=== PATIENT | female | born 1990 | race Caucasian/White ===

== ENCOUNTER 2016-03-08 22:13 | Emergency (ER) | payer OTHER, MEDICAID ==
[2016-03-09 00:06] LABS: Urine Bacteria Absent (Absent); Urine Bilirubin Negative (Negative); Urine Glucose Negative (Negative); Urine Nitrite Negative (Negative)
[2016-03-09 01:04] VITALS: BP 111/66
--- NOTE | 2016-03-09 07:38 | RAD ---
INDICATION: Right flank pain. COMPARISON: Comparison is made with a prior CT of the abdomen and pelvis from April 04, 2012. TECHNIQUE: Multiple real-time images of the right kidney were obtained. FINDINGS: The right kidney is normal in size shape and echogenicity. The kidney measured 11.7 x 4.9 x 5.4 cm. No significant focal abnormality or hydronephrosis was present. IMPRESSION: NEGATIVE EXAM, NO EVIDENCE FOR HYDRONEPHROSIS.
--- NOTE | 2016-03-09 07:44 | RAD ---
INDICATION: Early . Right-sided pain COMPARISON: None TECHNIQUE: Transvaginal scans were performed for the purposes of early evaluation. FINDINGS: There is a single intrauterine gestation with identification of the pole, yolk sac, movement, and cardiac activity of 150 beats for minute. The crown-rump length corresponds to a 12 week 6 day gestation and the gestational sac size measurement to a 12 week 6 day gestation. The estimated due date is September 15, 2016. There is no subchorionic hemorrhage. The right ovary measures 2.6 x 2.6 x 3.0 cm and the left ovary 3.7 x 1.4 x 4.1 cm. There is a left paraovarian cyst. IMPRESSION: INTRAUTERINE GESTATION AT 12 WEEKS 6 DAYS WITH CONFIRMATION OF CARDIAC ACTIVITY
--- NOTE | 2016-03-09 11:38 | ED ---
Naif Rodriges Billy, scribed for Daniel Henry MD on 03/08/16 at 2252 . Back Pain - HPI Summary HPI Summary: Patient is a 25 year-old female coming to [facility] presenting with right lower back pain for the last few days. She describes a constant ache with intermittent sharp pain lasting 1 to 2 minutes. Pain severity 3/10. Nothing makes her pain better or worse. She denies any urinary changes or symptoms. She is [address] Angella Latham ([facility] [facility]) in [place]. She denies any similar symptoms during her last . LMP at the end of November. - History of Current Complaint Chief Complaint: EDGeneral Stated Complaint: 3 MONTHS PREG/ PAIN IN SIDE Time Seen by Provider: 03/08/16 22:43 Hx Obtained From: Patient Hx Last Menstrual Period: 10/26/15 Onset/Duration: Gradual Onset, Lasting Days, Still Present Onset/Duration: Started Days Ago Timing: Constant - ache, Intermittent - sharp pain, Lasting Minutes Back Pain Location: Is Discrete @ - right lower back Severity Initially: Moderate Severity Currently: Moderate Pain Intensity: 3 Pain Scale Used: 0-10 Numeric Character: Sharp - intermittent, Aching - constant Aggravating Symptom(s): Nothing Alleviating Symptom(s): Nothing Associated Signs And Symptoms: Positive: Negative - Allergies/Home Medications Allergies/Adverse Reactions: Allergies Allergy/AdvReac Type Severity Reaction Status Date / Time No Known Allergies Allergy Verified 12/24/15 18:09 PMH/Surg Hx/FS Hx/Imm Hx Endocrine/Hematology History: Denies: Hx Anticoagulant Therapy, Hx Diabetes, Hx Thyroid Disease Cardiovascular History: Denies: Hx Hypertension, Hx Pacemaker/ICD Respiratory History: Reports: Hx Asthma Denies: Hx Chronic Obstructive Pulmonary Disease (COPD) History: Reports: Other Problems/Disorders - ovarian cysts Denies: Hx Renal Disease Sensory History: Reports: Hx Cataracts Opthamlomology History: Reports: Hx Cataracts Neurological History: Denies: Hx Dementia, Hx Seizures Psychiatric History: Denies: Hx Substance Abuse - Surgical History Surgery Procedure, Year, and Place: denies - Immunization History Date of Tetanus Vaccine: up to date per pt Infectious Disease History: Yes Infectious Disease History: Reports: Hx of Known/Suspected MRSA Denies: Hx Hepatitis, Hx Human Immunodeficiency Virus (HIV), History Other Infectious Disease, Traveled Outside the [place] in Last 30 Days - Family History Known Family History: Positive: Cardiac Disease, Other - lupus - Social History Alcohol Use: Occasionally Substance Use Type: Reports: None Smoking Status (MU): Former Smoker Amount Used/How Often: 1 cig a day Review of Systems Negative: dysuria Positive: Other - lower back pain All Other Systems Reviewed And Are Negative: Yes Physical Exam Triage Information Reviewed: Yes Vital Signs On Initial Exam: Initial Vitals Temp Pulse Resp BP Pulse Ox 99 F 89 18 122/72 100 03/08/16 22:16 03/08/16 22:16 03/08/16 22:16 03/08/16 22:16 03/08/16 22:16 Vital Signs Reviewed: Yes Appearance: Positive: Well-Appearing, No Pain Distress Skin: Positive: Warm, Skin Color Reflects Adequate Perfusion Head/Face: Positive: Normal Head/Face Inspection Eyes: Positive: Normal ENT: Positive: Normal ENT inspection Neck: Positive: Supple, Nontender Respiratory/Lung Sounds: Positive: Clear to Auscultation, Breath Sounds Present Cardiovascular: Positive: RRR Abdomen Description: Positive: Nontender, Soft Musculoskeletal: Positive: Pain @ - Mild right paralumbar tenderness. Her sharp pain is not reproducible with palpation. Neurological: Positive: Normal Psychiatric: Positive: Normal, Affect/Mood Appropriate AVPU Assessment: Alert Diagnostics - Vital Signs Vital Signs Temp Pulse Resp BP Pulse Ox 03/08/16 22:16 99 F 89 18 122/72 100 - Laboratory Lab Results: Lab Results 03/08/16 Range/Units 23:30 Urine Color Yellow Urine Appearance Cloudy Urine pH 5.0 (5-9) Ur Specific [place] 1.026 (1.010-1.030) Urine Protein Negative (Negative) Urine Ketones Trace H (Negative) Urine Blood Negative (Negative) Urine Nitrate Negative (Negative) Urine Bilirubin Negative (Negative) Urine Urobilinogen Negative (Negative) Ur Leukocyte Esterase Trace H (Negative) Urine WBC (Auto) Trace(0-5/hpf) (Absent) Urine RBC (Auto) 2+(6-10/hpf) H (Absent) Ur Squamous Epith Cells Present H (Absent) Urine Bacteria Absent (Absent) Urine Glucose Negative (Negative) Urine Ascorbic Acid * H (Negative) Lab Statement: Any lab studies that have been ordered have been reviewed, and results considered in the medical decision making process. - Additional Comments Diagnostic Additional Comments: Renal right US: Normal appearance of the right kidney. US: Live intrauterine gestation of approximately 12 weeks 6 days by mean sac diameter measurements. Paraovarian cyst on the left. Otherwise normal appearance of both ovaries. Back Pain Course/Dx - Course Course Of Treatment: Patricia Gilbert presented with a dull pain in edi back on the right that was very mild but occasionallybecame sharp and severe for a brief second or two. She could describe no exacerabating or relieving factors but i could reproduce the dull part by palpation but not the sharp. Her U/S's showed a viable fetus and not hydronephrosis or obvious stone. there was 2+ blood in her U/A but also squamus cells. The urine was sent for C&S and i recommended close F/u with OB. She may need a CT to R/O stone. - Diagnoses Provider Diagnoses: Back pain Discharge - Discharge Plan Condition: Stable Disposition: HOME Patient Education Materials: Back Pain (ED) Additional Instructions: FOLLOW UP WITH DR. LATHAM ([employer] [employer]). The documentation as recorded by the Naif patel Billy accurately reflects the service I personally performed and the decisions made by me, Daniel Henry MD.
== END 2016-03-09 01:04 | disposition home or self-care (01) ==
LOC: ED 22:13
DX: O26.91 Pregnancy related conditions, unspecified, first trimester (principal); Z3A.12 12 weeks gestation of pregnancy; M54.5 Low back pain; Z87.891 Personal history of nicotine dependence; R31.9 Hematuria, unspecified
CPT/HCPCS: 76775; 76801; 81003; 81015; 87086; 99282

== ENCOUNTER 2016-06-03 01:20 | Emergency (ER) | payer OTHER, MEDICAID ==
[2016-06-03 03:16] LABS: Urine Bilirubin Negative (Negative); Urine Glucose Negative (Negative); Urine Nitrite Negative (Negative)
--- NOTE | 2016-06-03 03:23 | ED ---
Psychiatric Complaint - HPI Summary HPI Summary: Pt here w/ anxiety. H/o anxiety and was taking zoloft and xanax for this over 18 months ago. She stopped taking these medication during her first and has not been back on them since. Feels she's been doing well without them. She is currently 7 months w/o complications. Has had a few [place] contractions but was seen by OBGYN this morning and everything was fine - no new sx since and denies vaginal d/c, spotting, ab pain. Has had some nausea from anxiety. Also reports she's not been sleeping well -mind is racing. She lives w/ her fiance who she reports is a very good father and she feels she's supportive. She's also in school and works one day a week at [employer]. No event has triggered anxiety to be worse, but states some of her friends have been saying they're "waiting for her to crack" - she states " I guess I finally did". Feels overwhelmed and doesn't want to feel this way -wants to be fully present for her daughter. Denies SI/HI and reports she just [facility] to make sure she was medically okay. Has not been in counseling in years but is open to this. - History Of Current Complaint Chief Complaint: EDMentalHealth Time Seen by Provider: 06/03/16 02:15 Hx Obtained From: Patient Hx Last Menstrual Period: 10/26/15 - Allergies/Home Medications Allergies/Adverse Reactions: Allergies Allergy/AdvReac Type Severity Reaction Status Date / Time No Known Allergies Allergy Verified 12/24/15 18:09 PMH/Surg Hx/FS Hx/Imm Hx Previously Healthy: Yes Endocrine/Hematology History: Denies: Hx Anticoagulant Therapy, Hx Diabetes, Hx Thyroid Disease, Hx Anemia , Autoimmune Disease Cardiovascular History: Denies: Hx Hypertension, Hx Pacemaker/ICD Respiratory History: Reports: Hx Asthma Denies: Hx Chronic Obstructive Pulmonary Disease (COPD) History: Reports: Other Problems/Disorders - ovarian cysts Denies: Hx Renal Disease Sensory History: Reports: Hx Cataracts Opthamlomology History: Reports: Hx Cataracts Neurological History: Denies: Hx Dementia, Hx Seizures Psychiatric History: Denies: Hx Substance Abuse - Surgical History Surgery Procedure, Year, and Place: denies - Immunization History Date of Tetanus Vaccine: up to date per pt Infectious Disease History: No Infectious Disease History: Reports: Hx of Known/Suspected MRSA Denies: Hx Hepatitis, Hx Human Immunodeficiency Virus (HIV), History Other Infectious Disease, Traveled Outside the [place] in Last 30 Days - Family History Known Family History: Positive: Cardiac Disease, Other - lupus - Social History Occupation: Employed Part-time, Student Lives: With Family Alcohol Use: None Hx Substance Use: No Substance Use Type: Reports: None. Denies: Excessive Caffeine Smoking Status (MU): Former Smoker Amount Used/How Often: 1 cig a day Review of Systems Negative: Fever, Chills ENT: Negative Cardiovascular: Other - CHEST DISCOMFORT W/ ANXIETY Negative: Shortness Of Breath, Cough Positive: Nausea - see HPI. Negative: Abdominal Pain, Diarrhea Positive: no symptoms reported Musculoskeletal: Negative Skin: Negative Neurological: Negative Positive: Anxious - See HPI- denies SI/HI All Other Systems Reviewed And Are Negative: Yes Physical Exam Triage Information Reviewed: Yes Vital Signs On Initial Exam: Initial Vitals Temp Pulse Resp BP Pulse Ox 98.7 F 101 18 140/91 100 06/03/16 01:29 06/03/16 01:29 06/03/16 01:29 06/03/16 01:29 06/03/16 01:29 Vital Signs Reviewed: Yes Appearance: Positive: No Pain Distress, Well-Nourished - tearful Skin: Positive: Warm, Dry Head/Face: Positive: Normal Head/Face Inspection Eyes: Positive: Normal, EOMI ENT: Positive: Hearing grossly normal, Pharynx normal - mucosa moist Neck: Positive: Supple - no gross thyromegaly Respiratory/Lung Sounds: Positive: Clear to Auscultation, Breath Sounds Present. Negative: Rales, Rhonchi, Wheezes Cardiovascular: Positive: Normal, RRR Abdomen Description: Positive: Nontender, Soft, Other: - ab Bowel Sounds: Positive: Present Musculoskeletal: Positive: Normal, Strength/ROM Intact Neurological: Positive: Normal, Sensory/Motor Intact, Alert, Oriented to Person Place, Time, CN Intact II-III Psychiatric: Positive: Anxious - tearful but calms down after conversation Diagnostics - Vital Signs Vital Signs Temp Pulse Resp BP Pulse Ox 06/03/16 01:32 97.1 F 101 18 140/91 100 06/03/16 01:29 98.7 F 101 18 140/91 100 - Laboratory Lab Results: Lab Results 06/03/16 Range/Units 03:02 Urine Color Yellow Urine Appearance Clear Urine pH 5.0 (5-9) Ur Specific [place] 1.018 (1.010-1.030) Urine Protein Negative (Negative) Urine Ketones Negative (Negative) Urine Blood Negative (Negative) Urine Nitrate Negative (Negative) Urine Bilirubin Negative (Negative) Urine Urobilinogen Negative (Negative) Ur Leukocyte Esterase Negative (Negative) Urine Glucose Negative (Negative) Lab Statement: Any lab studies that have been ordered have been reviewed, and results considered in the medical decision making process. Course/Dx - Course Course Of Treatment: Pt presents w/ anxiety. W/ h/o anxiety and full schedule in the face of poor sleep recently, suspect this is a relapse of anxiety. Will r /o medical issues and encouraged counseling outpt. May call to schedule tomorrow. If medical causes are ruled out, pt does not want anything for anxiety tonight as she doesn't like to take medication during , not even tylenol. SIgned out to Dr. Mcdonald at 3:29am. - Differential Dx/Clinical Impression Provider Diagnosis: Anxiety, - Physician Notifications Discussed Care Of Patient With: Dr. Mcdonald Discharge - Discharge Plan Condition: Stable Disposition: OTHER Discharge Disposition Comment: Signed out to Dr. Mcdonald @ 3:29am
[2016-06-03 03:30] LABS: Hematocrit 38 % (35-47); Hemoglobin 12.2 g/dl (12.0-16.0); Mean Corpuscular HGB Conc 32 g/dl (31-36); Mean Corpuscular Hemoglobin 28 pg (27-31); Mean Corpuscular Volume 87 fL (80-97); Mean Platelet Volume 8 um3 (7.4-10.4); Red Blood Count 4.32 10^6/ul (4.0-5.4); Red Cell Distribution Width 14 % (10.5-15)
[2016-06-03 03:35] LABS: Benzodiazepine Urine Screen None Detected (None Detect)
[2016-06-03 03:48] LABS: Acetaminophen < 15 mcg/mL; Alcohol < 10 mg/dL (<10); Salicylate < 2.50 mg/dL (<30)
[2016-06-03 03:58] LABS: TSH (Thyroid Stimulating Horm) 1.37 mcIU/mL (0.34-5.60)
[2016-06-03 04:37] LABS: Anion Gap 8 mmol/L (2-11); CO2 Carbon Dioxide 21 mmol/L (22-32); Chloride 105 mmol/L (101-111); Potassium 3.7 mmol/L (3.5-5.0); Sodium 134 mmol/L (133-145)
[2016-06-03 04:38] LABS: ALT 10 U/L (7-52); AST 14 U/L (13-39); Albumin 3.4 g/dL (3.2-5.2); Alkaline Phosphatase 65 U/L (34-104); BUN/Creatinine Ratio 15.8 (8-20); Blood Urea Nitrogen 9 mg/dL (6-24); Calcium 8.7 mg/dL (8.6-10.3); EGFR African American 167.6 (>60); EGFR Non-African American 130.3 (>60); Globulin 2.8 g/dL (2-4); Glucose 92 mg/dL (70-100); Total Protein 6.2 g/dL (6.4-8.9)
[2016-06-03 05:45] VITALS: BP 104/57
--- NOTE | 2016-06-03 21:04 | PN ---
Naif Rodriges Billy, scribed for Justin Mcdonald MD on 06/03/16 at 0513 . Progress Note - Progress Note Note: Signed out by ELIZABETH Dang. Patient will be discharged home to follow up with PCP. DIAGNOSIS: Anxiety CONDITION: Stable DISPOSITION: Discharge home The documentation as recorded by the Naif patel Billy accurately reflects the service I personally performed and the decisions made by Tamara conner Jerry, MD.
== END 2016-06-03 05:44 | disposition home or self-care (01) ==
LOC: ED 01:20
DX: F41.9 Anxiety disorder, unspecified (principal); R11.0 Nausea; Z34.90 Encounter for supervision of normal pregnancy, unspecified, unspecified trimester
CPT/HCPCS: 36415; 80053; 80307; 80320; 80329; 81003; 84443; 84702; 85025; 99283; G0480

== ENCOUNTER 2017-09-20 20:48 | Emergency (ER) | payer MEDICAID, OTHER ==
--- NOTE | 2017-09-20 21:18 | ED ---
Lower Extremity - HPI Summary HPI Summary: Complains of pain to dorsal lateral edge of right foot 2 months. History of broken fifth toe on right foot 2 months ago. States pain started around that time. Pain disturbance patient at night when she rolls over or puts pressure on that side of her foot. States 60% of the time when she ambulates no pain, 40 % a time and rates with pain. Denies loss of sensation or function. Medical history is none. - History of Current Complaint Chief Complaint: EDExtremityLower Stated Complaint: RT FOOT INJURY Time Seen by Provider: 09/20/17 21:01 Hx Obtained From: Patient Hx Last Menstrual Period: 10/26/15 Mechanism Of Injury: Unknown Onset of Pain: Days Onset/Duration: Weeks Severity Initially: Mild Severity Currently: Moderate Pain Intensity: 5 Pain Scale Used: 0-10 Numeric Timing: Intermittent Location: Is Discrete @ Character Of Pain: Sharp, Aching Associated Signs And Symptoms: Positive: Negative Aggravating Factor(s): Weight Bearing, Other Able to Bear Weight: Yes - Allergies/Home Medications Allergies/Adverse Reactions: Allergies Allergy/AdvReac Type Severity Reaction Status Date / Time No Known Allergies Allergy Verified 09/20/17 20:53 PMH/Surg Hx/FS Hx/Imm Hx Endocrine/Hematology History: Denies: Hx Anticoagulant Therapy, Hx Diabetes, Hx Thyroid Disease, Hx Anemia Cardiovascular History: Denies: Hx Hypertension, Hx Pacemaker/ICD Respiratory History: Reports: Hx Asthma Denies: Hx Chronic Obstructive Pulmonary Disease (COPD) History: Reports: Other Problems/Disorders - ovarian cysts Denies: Hx Renal Disease Sensory History: Reports: Hx Cataracts Opthamlomology History: Reports: Hx Cataracts Neurological History: Denies: Hx Dementia, Hx Seizures Psychiatric History: Denies: Hx Substance Abuse - Surgical History Surgery Procedure, Year, and Place: denies - Immunization History Date of Tetanus Vaccine: up to date per pt Infectious Disease History: No Infectious Disease History: Reports: Hx of Known/Suspected MRSA Denies: Hx Hepatitis, Hx Human Immunodeficiency Virus (HIV), History Other Infectious Disease, Traveled Outside the [place] in Last 30 Days - Family History Known Family History: Positive: Cardiac Disease, Other - lupus - Social History Alcohol Use: None Hx Substance Use: No Substance Use Type: Reports: None. Denies: Excessive Caffeine Smoking Status (MU): Former Smoker Amount Used/How Often: 1 cig a day Review of Systems Constitutional: Negative Eyes: Negative ENT: Negative Cardiovascular: Negative Respiratory: Negative Gastrointestinal: Negative Genitourinary: Negative Musculoskeletal: Other Skin: Negative Neurological: Negative Psychological: Normal All Other Systems Reviewed And Are Negative: Yes Physical Exam - Summary Physical Exam Summary: No ecchymosis, erythema, extra warmth, deformity, swelling noted to right foot, right ankle, right calf.. PMS intact distally. Mild tenderness along lateral dorsal surface of right foot. No tenderness to right ankle, right calf. Triage Information Reviewed: Yes Vital Signs On Initial Exam: Initial Vitals Temp Pulse Resp BP Pulse Ox 97.5 F 56 16 122/88 99 09/20/17 20:49 09/20/17 20:49 09/20/17 20:49 09/20/17 20:49 09/20/17 20:49 Vital Signs Reviewed: Yes Appearance: Positive: Well-Appearing Skin: Positive: Warm Head/Face: Positive: Normal Head/Face Inspection Eyes: Positive: Normal Neck: Positive: Supple Respiratory/Lung Sounds: Positive: Clear to Auscultation Cardiovascular: Positive: Normal Abdomen Description: Positive: Nontender Musculoskeletal: Positive: Normal Neurological: Positive: Normal Psychiatric: Positive: Normal AVPU Assessment: Alert - [place] Coma Scale Best Eye Response: 4 - Spontaneous Best Motor Response: 6 - Obeys Commands Best Verbal Response: 5 - Oriented Coma Scale Total: 15 Diagnostics - Vital Signs Vital Signs Temp Pulse Resp BP Pulse Ox 09/20/17 20:49 97.5 F 56 16 122/88 99 - Laboratory Lab Statement: Any lab studies that have been ordered have been reviewed, and results considered in the medical decision making process. - Radiology foot Xray Interpretation: No Acute Changes Radiology Interpretation Completed By: ED Physician Lower Extremity Course/Dx - Course Course Of Treatment: Complains of pain to dorsal lateral edge of right foot 2 months. History of broken fifth toe on right foot 2 months ago. States pain started around that time. Pain disturbance patient at night when she rolls over or puts pressure on that side of her foot. States 60% of the time when she ambulates no pain, 40% a time and rates with pain. Denies loss of sensation or function. No ecchymosis, erythema, extra warmth, deformity, swelling noted to right foot, right ankle, right calf.. PMS intact distally. Mild tenderness along lateral dorsal surface of right foot. No tenderness to right ankle, right calf. X-ray foot negative. Follow-up with podiatry. Ibuprofen for pain - Diagnoses Provider Diagnoses: Foot pain, right Discharge - Sign-Out/Discharge Documenting (check all that apply): Patient Departure - Discharge Plan Condition: Stable Disposition: HOME Patient Education Materials: Metatarsalgia (DC) Referrals: Raul Rojo MD [Primary Care Provider] - ROSEMARY REYES [Doctor of Podiatric Medicine] - Additional Instructions: Ibuprofen for pain. Follow-up with podiatry Dr Reyes. Return to the ED for any new or worsening symptoms - Billing Disposition and Condition Condition: STABLE Disposition: Home
[2017-09-20] MEDS ORDERED: Ibuprofen TAB* 600 MG PO ONE (21:56)
[2017-09-20 22:28] VITALS: BP 118/80
--- NOTE | 2017-09-21 07:27 | RAD ---
Indication: Right lateral dorsal foot pain. 3 views of the right foot demonstrates no fracture. No other bone or joint abnormality is noted. IMPRESSION: No fracture of the right foot is noted.
== END 2017-09-20 22:05 | disposition home or self-care (01) ==
LOC: ED 20:48
DX: M79.671 Pain in right foot (principal); Z87.891 Personal history of nicotine dependence
CPT/HCPCS: 99282; A9270-GY

== ENCOUNTER 2018-01-25 12:43 | Emergency (ER) | payer MEDICAID, OTHER ==
--- NOTE | 2018-01-25 13:01 | UC ---
UC General HPI - HPI Summary HPI Summary: 27 yo female c/o approx 4 weeks progressive, productive cough. + dark yellow sputum, occasional blood. No sob but + wheezing. No recent fever. No GI issues. No issues. + fatigue. Hx asthma. Hx pneumonia. Wanted to come in to be checked earlier but did not have health insurance until recently. - History of Current Complaint Stated Complaint: COUGH,CHEST CONGESTION Time Seen by Provider: 01/25/18 12:59 Hx Obtained From: Patient Hx Last Menstrual Period: 10/26/15 - Allergy/Home Medications Allergies/Adverse Reactions: Allergies Allergy/AdvReac Type Severity Reaction Status Date / Time No Known Allergies Allergy Verified 01/25/18 13:10 Home Medications: Home Medications ALPRAZolam [Xanax] 0.25 mg PO SEE INSTRUCTIONS 01/25/18 [History Confirmed 01/25] PMH/Surg Hx/FS Hx/Imm Hx Previously Healthy: Yes Other History Of: Negative For: Anticoagulant Therapy - Surgical History Surgical History: None Surgery Procedure, Year, and Place: denies - Family History Known Family History: Positive: Cardiac Disease, Other - lupus Negative: Respiratory Disease - Social History Occupation: Employed Part-time Alcohol Use: None Substance Use Type: None Smoking Status (MU): Never Smoked Tobacco Amount Used/How Often: 1 cig a day Household Exposure Type: Cigarettes - Immunization History Most Recent Influenza Vaccination: 2011 Most Recent Tetanus Shot: UNKNOWN Most Recent Pneumonia Vaccination: NEVER Review of Systems All Other Systems Reviewed And Are Negative: Yes Constitutional: Positive: Fatigue Skin: Positive: Negative Eyes: Positive: Negative ENT: Positive: Nasal Discharge, Sinus Congestion Respiratory: Positive: Cough Cardiovascular: Positive: Other - see hpi Gastrointestinal: Positive: Negative Genitourinary: Positive: Negative Motor: Positive: Negative Neurovascular: Positive: Negative Musculoskeletal: Positive: Negative Neurological: Positive: Negative Psychological: Positive: Negative Is Patient Immunocompromised?: No Physical Exam Triage Information Reviewed: Yes Appearance: Well-Nourished - sitting up, conversing in full sentances. Vital Signs Reviewed: Yes Eye Exam: Normal ENT: Positive: TM dull, Other - Tonsils enlarged, red. + white spots on tonsils. Uvula midline. Trachea midline. Neck exam: Normal Neck: Positive: Supple, Nontender Respiratory Exam: Other - Bilat course breath sounds. + rhonchorus cough. + scattered exp wheeze Respiratory: Positive: No respiratory distress, No accessory muscle use Cardiovascular Exam: Normal Cardiovascular: Positive: RRR, No Murmur, Pulses Normal, Brisk Capillary Refill Abdominal Exam: Normal Abdomen Description: Positive: Nontender Musculoskeletal Exam: Normal - gait steady, moves x 4 ext's Neurological Exam: Normal - grossly nonfocal Psychological Exam: Normal - conversing easily and appropriately Skin Exam: Normal - no visible or reported rash Course/Dx - Course Course Of Treatment: RST negative. CXR - nad. Reviewed previous labs as available in [facility]. In light of this, in conjunction with current sx and fatigue, will check blood work. She will schedule f/u with PCP, Dr. Rojo. Questions as posed answered to the best of my ability. - Diagnoses Provider Diagnosis: Bronchitis, Bronchospasm, Tonsillitis Discharge - Sign-Out/Discharge Documenting (check all that apply): Patient Departure All imaging exams completed and their final reports reviewed: Yes - Discharge Plan Condition: Stable Disposition: HOME Patient Education Materials: Acute Bronchitis (ED), Bronchospasm (ED) Referrals: Raul Rojo MD [Primary Care Provider] - Additional Instructions: Follow up with Dr. Rojo in the next 1-2 weeks. Seek medical attention for worse or new problems. Blood work in the lab. - Billing Disposition and Condition Condition: STABLE Disposition: Home
[2018-01-25 13:11] VITALS: BP 125/75
[2018-01-25 19:01] LABS: ABS Basophils 0 10^3/ul (0-0.2); ABS Eosinophils 0.2 10^3/ul (0-0.6); ABS Lymphocytes 2.2 10^3/ul (1.0-4.8); ABS Monocytes 0.4 10^3/ul (0-0.8); ABS Neutrophils 4.4 10^3/ul (1.5-7.7); ABS Nucleated RBC 0 10^3/ul; Hematocrit 40 % (35-47); Hemoglobin 13.6 g/dl (12.0-16.0); Lymphocyte % 30.1 %; Mean Corpuscular HGB Conc 34 g/dl (31-36); Mean Corpuscular Hemoglobin 30 pg (27-31); Mean Corpuscular Volume 88 fL (80-97); Mean Platelet Volume 8.1 fL (7.4-10.4); Nucleated Red Blood Cells % 0.1; Platelet Count 336 10^3/ul (150-450); Red Cell Distribution Width 13 % (10.5-15); White Blood Count 7.3 10^3/ul (3.5-10.8)
--- NOTE | 2018-01-26 17:08 | UC ---
- Progress Note Progress Note: 01/26/2018 CBC=WNL BUN/Creat ration =20 mildly elevated the rest of CMP=WNL Please call back Pt and notify her of results. Please advised to f/u w/ her PCP for further management Ken Tineo PA-C Course/Dx - Diagnoses Provider Diagnoses: Bronchitis, Bronchospasm, Tonsillitis Discharge - Sign-Out/Discharge Documenting (check all that apply): Patient Departure - d/c home All imaging exams completed and their final reports reviewed: Yes - Discharge Plan Condition: Stable Disposition: HOME Prescriptions: Albuterol HFA INHALER* [Ventolin HFA Inhaler*] 1 - 2 puff INH Q4H PRN #1 mdi PRN Reason: Wheezing Azithromycin 500 mg PO DAILY #5 tablet Patient Education Materials: Acute Bronchitis (ED), Bronchospasm (ED) Forms: *Work Release Referrals: Raul Rojo MD [Primary Care Provider] - Additional Instructions: Follow up with Dr. Rojo in the next 1-2 weeks. Seek medical attention for worse or new problems. Blood work in the lab. - Billing Disposition and Condition Condition: STABLE Disposition: Home
== END 2018-01-25 14:43 | disposition home or self-care (01) ==
LOC: UCEAST 12:43
DX: J20.9 Acute bronchitis, unspecified (principal); J03.90 Acute tonsillitis, unspecified
CPT/HCPCS: 36415; 71046; 80048; 83735; 85025; 87651; 99212; G0463

== ENCOUNTER 2018-05-31 01:48 | Emergency (ER) | payer MEDICAID, OTHER ==
[2018-05-31] MEDS ORDERED: Ketorolac INJ* 30 MG/ML 1 ML VIAL IM ONE (02:23)
[2018-05-31] MEDS ORDERED: oxyCODONE/Acetamin 5/325 MG* TAB PO ONE (02:23)
--- NOTE | 2018-05-31 02:28 | ED ---
Upper Extremity Pain - HPI Summary HPI Summary: The pt is a 27 y/o F presenting to the ED with a chief complaint of shoulder pain. She was sleeping when she woke up with severe L shoulder pain described as the worst pain Maite ever felt, and located in the anterior portion of her shoulder. She denies edema, erythema, or trauma to the area. She took ibuprofen that did not help. - History of Current Complaint Chief Complaint: EDShoulderCCharlotte Stated Complaint: WOKE UP 2 HOURS AGO PAIN IN SHOULDER PER PT Time Seen by Provider: 05/31/18 02:17 Hx Obtained From: Patient Hx Last Menstrual Period: 10/26/15 Mechanism Of Injury: Unknown Onset/Duration: Started Hours Ago, Still Present Timing: Constant, Lasting Hours Severity Initially: Severe Severity Currently: Severe Pain Location: Shoulder - left Character: Aching Aggravating Factor(s): Movement Alleviating Factor(s): Nothing Associated Signs & Symptoms: Negative: Swelling, Redness - Allergies/Home Medications Allergies/Adverse Reactions: Allergies Allergy/AdvReac Type Severity Reaction Status Date / Time No Known Allergies Allergy Verified 05/31/18 01:51 PMH/Surg Hx/FS Hx/Imm Hx Previously Healthy: Yes Endocrine/Hematology History: Denies: Hx Anticoagulant Therapy, Hx Diabetes, Hx Thyroid Disease, Hx Anemia Cardiovascular History: Denies: Hx Hypertension, Hx Myocardial Infarction, Hx Pacemaker/ICD Respiratory History: Reports: Hx Asthma Denies: Hx Chronic Obstructive Pulmonary Disease (COPD) History: Reports: Other Problems/Disorders - ovarian cysts Denies: Hx Renal Disease Sensory History: Reports: Hx Cataracts Opthamlomology History: Reports: Hx Cataracts Neurological History: Denies: Hx Dementia, Hx Seizures Psychiatric History: Denies: Hx Substance Abuse - Surgical History Surgery Procedure, Year, and Place: denies - Immunization History Date of Tetanus Vaccine: up to date per pt Date of Influenza Vaccine: 11/2016 Infectious Disease History: No Infectious Disease History: Reports: Hx of Known/Suspected MRSA Denies: Hx Hepatitis, Hx Human Immunodeficiency Virus (HIV), History Other Infectious Disease, Traveled Outside the [place] in Last 30 Days - Family History Known Family History: Positive: Cardiac Disease, Other - lupus Negative: Respiratory Disease - Social History Alcohol Use: None Hx Substance Use: No Substance Use Type: Reports: None Hx Tobacco Use: No Smoking Status (MU): Never Smoked Tobacco Amount Used/How Often: 1 cig a day Review of Systems Positive: Arthralgia. Negative: Edema Negative: Other - erythema All Other Systems Reviewed And Are Negative: Yes Physical Exam - Summary Physical Exam Summary: VITAL SIGNS: Reviewed. GENERAL: Patient is a well-developed and nourished female who is lying comfortable in the stretcher. Patient is not in any acute respiratory distress. HEAD AND FACE: No signs of trauma. No ecchymosis, hematomas or skull depressions. No sinus tenderness. EYES: PERRLA, EOMI x 2, No injected conjunctiva, no nystagmus. EARS: Hearing grossly intact. Ear canals and tympanic membranes are within normal limits. MOUTH: Oropharynx within normal limits. NECK: Supple, trachea is midline, no adenopathy, no JVD, no carotid bruit, no c- spine tenderness, neck with full ROM. CHEST: Symmetric, no tenderness at palpation LUNGS: Clear to auscultation bilaterally. No wheezing or crackles. CVS: Regular rate and rhythm, S1 and S2 present, no murmurs or gallops appreciated. ABDOMEN: Soft, non-tender. No signs of distention. No rebound no guarding, and no masses palpated. Bowel sounds are normal. EXTREMITIES: FROM in all major joints, no edema, no cyanosis or clubbing. Tenderness over bicipital groove, neurovascular exam is intact. Speeds test positive. NEURO: Alert and oriented x 3. No acute neurological deficits. Speech is normal and follows commands. SKIN: Dry and warm Triage Information Reviewed: Yes Vital Signs On Initial Exam: Initial Vitals Temp Pulse Resp BP Pulse Ox 97.8 F 93 18 143/105 94 05/31/18 01:50 05/31/18 01:50 05/31/18 01:50 05/31/18 01:50 05/31/18 01:50 Vital Signs Reviewed: Yes Procedures - Procedure Summary Procedure Summary: Bicipital tendonitis injection Consent was obtained from the pt and aseptic technique was used for this procedure. I used a 22 gauge 1.5cm needle to inject, and chlorhexidine to sterilize the area. The pt was given Depo-Medrol with Lidocaine 2% into the bicipital groove. The pt feels better, her pain is almost gone, and she will be d/c'ed with a dx of bicipital tendonitis. Diagnostics - Vital Signs Vital Signs Temp Pulse Resp BP Pulse Ox 05/31/18 01:50 97.8 F 93 18 143/105 94 - Laboratory Lab Statement: Any lab studies that have been ordered have been reviewed, and results considered in the medical decision making process. - Radiology Shoulder XR Radiology Interpretation Completed By: ED Physician Summary of Radiographic Findings: Negative. Pending official radiology report. Course/Dx - Course Course Of Treatment: The pt is a 27 y/o F presenting to the ED with a chief complaint of shoulder pain. She was sleeping when she woke up with severe L shoulder pain described as the worst pain Maite ever felt, and located in the anterior portion of her shoulder. She denies swelling, redness, or trauma to the area. Shoulder XR is negative, pending official radiology report. Pt was given Depo-Medrol injection in the bicipital groove, see procedure note for details. The pt feels better, her pain is almost gone, and she will be d/c'ed with a dx of bicipital tendonitis. - Diagnoses Provider Diagnoses: Bicipital tendonitis of left shoulder Discharge - Sign-Out/Discharge Documenting (check all that apply): Patient Departure Patient Received Moderate/Deep Sedation with Procedure: No - Discharge Plan Condition: Stable Disposition: HOME Referrals: Raul Rojo MD [Primary Care Provider] - Additional Instructions: Please follow up with your primary care provider within the next 2-3 days. Return to the ED with any new or worsening symptoms. - Attestation Statements Document Initiated by Scribe: Yes Documenting Scribe: Yokasta Cortez Provider For Whom Katya is Documenting (Include Credential): Abigail Douglas MD. Scribe Attestation: Yokasta Rodriges scribed for Abigail Douglas MD. on 05/31/18 at 0306. Status of Scribe Document: Ready
[2018-05-31] MEDS ORDERED: methylPREDNISolone ACETATE 40* 40 MG/ML 1 ML VIAL IM ONE (02:42)
[2018-05-31] MEDS ORDERED: Lidocaine 2% MPF* 2 ML VIAL ONE (02:44)
[2018-05-31] MEDS ORDERED: methylPREDNISolone ACETATE 40* 40 MG/ML 1 ML VIAL ONE (02:44)
[2018-05-31 03:16] VITALS: BP 118/69
== END 2018-05-31 03:15 | disposition home or self-care (01) ==
LOC: ED 01:48
DX: M75.22 Bicipital tendinitis, left shoulder (principal); M25.512 Pain in left shoulder; Z86.14 Personal history of Methicillin resistant Staphylococcus aureus infection
CPT/HCPCS: 96372; 99282; J1030; J1885

== ENCOUNTER 2018-12-28 20:23 | Emergency (ER) | payer OTHER ==
--- NOTE | 2018-12-28 20:29 | UC ---
Throat Pain/Nasal Irvin HPI - HPI Summary HPI Summary: 28 yo female presents with sore throat. She tells me that for the last 3 days she has had a sore throat. Today developed a fever and worsening sore throat. She has been taking tylenol with good reduction of her fever. Also has a mild dry cough and post nasal drip. She is eating, drinking, and tolerating po. Denies rash, SOB, chest pain, abdominal pain, n/v. - History of Current Complaint Stated Complaint: SORE THROAT Time Seen by Provider: 12/28/18 20:29 Hx Obtained From: Patient Hx Last Menstrual Period: 10/26/15 Onset/Duration: Gradual Onset Severity: Moderate Pain Intensity: 5 Pain Scale Used: 0-10 Numeric - Allergies/Home Medications Allergies/Adverse Reactions: Allergies Allergy/AdvReac Type Severity Reaction Status Date / Time No Known Allergies Allergy Verified 05/31/18 01:51 PMH/Surg Hx/FS Hx/Imm Hx Respiratory History: Asthma Psychological History: Anxiety Other History Of: Negative For: Anticoagulant Therapy - Surgical History Surgical History: None Surgery Procedure, Year, and Place: denies - Family History Known Family History: Positive: Cardiac Disease, Other - lupus Negative: Respiratory Disease - Social History Occupation: Employed Full-time Lives: With Family Alcohol Use: None Substance Use Type: None Smoking Status (MU): Never Smoked Tobacco Amount Used/How Often: 1 cig a day Household Exposure Type: Cigarettes - Immunization History Most Recent Influenza Vaccination: 2011 Most Recent Tetanus Shot: UNKNOWN Most Recent Pneumonia Vaccination: NEVER Review of Systems All Other Systems Reviewed And Are Negative: No Constitutional: Positive: Fever Skin: Positive: Negative Eyes: Positive: Negative ENT: Positive: Sore Throat Respiratory: Positive: Negative Cardiovascular: Positive: Negative Gastrointestinal: Positive: Negative Neurological: Positive: Negative Psychological: Positive: Negative Physical Exam - Summary Physical Exam Summary: GENERAL: NAD. WDWN. No pain distress. SKIN: No rashes, sores, lesions, or open wounds. HEENT: Head: AT/NC Eyes: Conjunctiva clear without inflammation or discharge. Ears: Hearing grossly normal. TMs intact, no bulging, erythema, or edema. Nose: Nasal mucosa pink and moist. NTTP maxillary and frontal sinus. Throat: Posterior oropharynx mild erythema and 2+ tonsillar enlargement. No exudates. Uvula midline. No hoarse voice or muffled voice. NECK: Supple. Nontender. No lymphadenopathy. CHEST: CTAB. No r/r/w. No accessory muscle use. Breathing comfortably and in no distress. CV: RRR.. Pulses intact. Cap refill <2seconds NEURO: Alert. PSYCH: Age appropriate behavior. Triage Information Reviewed: Yes Vital Signs: Laboratory Tests 12/28/18 20:35 Group A Strep Rapid Negative Vital Signs: Temp Pulse Resp BP Pulse Ox 98.7 F 94 16 121/78 99 12/28/18 20:40 12/28/18 20:40 12/28/18 20:40 12/28/18 20:40 12/28/18 20:40 Vital Signs Reviewed: Yes Throat Pain/Nasal Course/Dx - Course Course Of Treatment: POC strep negative Suspect viral tonsillitis. Encouraged supportive care. Will rx for amoxicillin if her symptoms do not improve in 2-3 days - Differential Dx/Diagnosis Provider Diagnosis: Tonsillitis Discharge ED - Sign-Out/Discharge Documenting (check all that apply): Patient Departure All imaging exams completed and their final reports reviewed: No Studies - Discharge Plan Condition: Stable Disposition: HOME Prescriptions: Amoxicillin PO (*) [Amoxicillin 875 MG (*)] 875 mg PO BID #14 tab Patient Education Materials: Tonsillitis (ED) Forms: *Work Release Referrals: Raul Rojo MD [Primary Care Provider] - Additional Instructions: If you develop a fever, shortness of breath, chest pain, new or worsening symptoms - please call your PCP or go to the ED immediately. Your strep test was negative today. Rest and drink plenty of fluids! May take tylenol/ibuprofen as directed for discomfort If your symptoms have not improved in 2-3 days, may start the antibiotic - Billing Disposition and Condition Condition: STABLE Disposition: Home
[2018-12-28 20:49] VITALS: BP 121/78
== END 2018-12-28 21:06 | disposition home or self-care (01) ==
LOC: UCEAST 20:23
DX: J03.90 Acute tonsillitis, unspecified (principal); J45.909 Unspecified asthma, uncomplicated; R05 Cough; R09.82 Postnasal drip
CPT/HCPCS: 87651; 99212; G0463

== ENCOUNTER 2019-03-07 16:04 | Emergency (ER) | payer MEDICAID, OTHER ==
[2019-03-07 19:25] LABS: ABS Eosinophils 0.2 10^3/ul (0-0.6); ABS Lymphocytes 2.7 10^3/ul (1.0-4.8); ABS Monocytes 0.6 10^3/ul (0-0.8); ABS Neutrophils 5.4 10^3/ul (1.5-7.7); Eosinophil % 2.3 %; Hematocrit 40 % (35-47); Hemoglobin 13.8 g/dL (12.0-16.0); Lymphocyte % 30.6 %; Mean Corpuscular HGB Conc 35 g/dL (31-36); Mean Corpuscular Hemoglobin 30 pg (27-31); Mean Corpuscular Volume 86 fL (80-97); Mean Platelet Volume 7.1 fL (7.4-10.4); Nucleated Red Blood Cells % 0.1; Platelet Count 384 10^3/uL (150-450); Red Blood Count 4.62 10^6 /uL (3.70-4.87); Red Cell Distribution Width 13 % (10-15); White Blood Count 8.9 10^3/uL (3.5-10.8)
[2019-03-07 19:43] LABS: ALT 20 U/L (7-52); AST 15 U/L (13-39); Albumin 4.3 g/dL (3.2-5.2); Albumin/Globulin Ratio 1.7 (1-3); Alkaline Phosphatase 63 U/L (34-104); Anion Gap 6 mmol/L (2-11); BUN/Creatinine Ratio 18.4 (8-20); Blood Urea Nitrogen 14 mg/dL (6-24); CO2 Carbon Dioxide 27 mmol/L (22-32); Calcium 9.4 mg/dL (8.6-10.3); Chloride 105 mmol/L (101-111); EGFR African American 110.5 (>60); EGFR Non-African American 91.3 (>60); Globulin 2.6 g/dL (2-4); Glucose 83 mg/dL (70-100); Potassium 4.1 mmol/L (3.5-5.0); Sodium 138 mmol/L (135-145); Total Protein 6.9 g/dL (6.4-8.9)
[2019-03-07 19:47] LABS: HCG Pregnancy < 0.60 mIU/mL
--- NOTE | 2019-03-07 20:28 | ED ---
Neurological HPI - HPI Summary HPI Summary: 28 year old female presents to the ED with a chief complaint of vision loss starting at 1515 today. Patient was at work on a phone call when her vision suddenly became spotty in both eyes. Currently, only right eye has spotty vision. Patient also reports difficulty speaking, numbness in her mouth, face and hands bilaterally, and a headache with a severity of 3/10 at onset, gradually increasing to a 7/10 currently. Patient denies recent fevers. Per significant other, patients speech is slower than baseline. She had a GI infection last week, during which she syncoped and may have hit her head. No PSHx. PMHx of meningitis in 2013. No FHx. Recently started taking Inderal for anxiety. Medications reviewed. - History of Current Complaint Chief Complaint: EDHeadache Stated Complaint: VISUAL TROUBLE/FACIAL NUMBNESS PER PT Time Seen by Provider: 03/07/19 20:05 Hx Obtained From: Patient Hx Last Menstrual Period: 10/26/15 Onset/Duration: Sudden Onset, Still Present, Worse Since - 1515 Timing: Sudden Onset Onset Severity: Severe Current Severity: Moderate Neurological Deficit Location: Facial Headache Location: Frontal Pain Intensity: 7 Pain Scale Used: 0-10 Numeric Character: Numbness/Tingling, Visual Changes Aggravating: Unknown Associated Signs and Symptoms: Positive: Visual Changes, Headache, Impaired Speech, Numbness TPA Considered: No - Allergy/Home Medications Allergies/Adverse Reactions: Allergies Allergy/AdvReac Type Severity Reaction Status Date / Time No Known Allergies Allergy Verified 05/31/18 01:51 Home Medications: Home Medications Acetaminophen 2 tab PO ONCE PRN 03/07/19 [History Confirmed 03/07/19] Propranolol 20 mg TAB 20 mg PO DAILY PRN 03/07/19 [History Confirmed 03/07/19] PMH/Surg Hx/FS Hx/Imm Hx Endocrine/Hematology History: Denies: Hx Anticoagulant Therapy, Hx Diabetes, Hx Thyroid Disease, Hx Anemia Cardiovascular History: Denies: Hx Hypertension, Hx Myocardial Infarction, Hx Pacemaker/ICD Respiratory History: Reports: Hx Asthma Denies: Hx Chronic Obstructive Pulmonary Disease (COPD) History: Reports: Other Problems/Disorders - ovarian cysts Denies: Hx Renal Disease Sensory History: Reports: Hx Cataracts Opthamlomology History: Reports: Hx Cataracts Neurological History: Denies: Hx Dementia, Hx Seizures Psychiatric History: Denies: Hx Substance Abuse - Surgical History Surgery Procedure, Year, and Place: denies - Immunization History Date of Tetanus Vaccine: up to date per pt Date of Influenza Vaccine: 11/2016 Infectious Disease History: No Infectious Disease History: Reports: Hx of Known/Suspected MRSA Denies: Hx Hepatitis, Hx Human Immunodeficiency Virus (HIV), History Other Infectious Disease, Traveled Outside the [place] in Last 30 Days - Family History Known Family History: Positive: Cardiac Disease, Other - lupus Negative: Respiratory Disease - Social History Alcohol Use: None Hx Substance Use: No Substance Use Type: Reports: None Hx Tobacco Use: No Smoking Status (MU): Never Smoked Tobacco Amount Used/How Often: 1 cig a day - Additional Comments History Additional Comments: PMHx: Meningitis Review of Systems - ROS Summary Review of Systems Summary: Home Medications Medication Instructions Recorded Confirmed Type Acetaminophen 2 tab PO ONCE PRN 03/07/19 03/07/19 History Propranolol 20 mg TAB 20 mg PO DAILY PRN 03/07/19 03/07/19 History Negative: Fever Positive: Other - Visual changes (Hole in vision) Neurological: Other - Slow speech Positive: Headache, Numbness - mouth, face, and hands bilaterally, Syncope Positive: Anxious All Other Systems Reviewed And Are Negative: Yes Physical Exam - Summary Physical Exam Summary: General: Well-developed, Well-nourished female. No acute distress. HEENT: Normocephalic, Atraumatic. Eyes: Conjuctiva normal, PERRL. EOMI. No papilledema. Ears: TMs within normal limits. Nares: (-) discharge, (-) erythema. Oropharynx: Clear, mucous membranes moist, (-) exudates. Neck: Soft, FROM, (-) lymphadenopathy, (-) thyromegaly, (-) JVD. Cardiovascular: Normal sinus rhythm, (-) murmur. Lungs: Clear to auscultation bilaterally (-) wheezes, (-) rales, (-) rhonchi. Abdomen: Soft, non-tender, non-distended, (-) organomegaly, normal bowel sounds. Back: (-) CVA tenderness Extremities: No edema. Skin: Warm, dry, (-) rash. Neuro: Alert and oriented x3, no facial droop. Good strength of forehead muscles , eye closing equal bilaterally. Normal strength and sensation in all extremities equally. Psychiatric: Mood normal, affect mildly anxious. Triage Information Reviewed: Yes Vital Signs On Initial Exam: Initial Vitals Temp Pulse Resp BP Pulse Ox 97.9 F 77 18 138/98 98 03/07/19 16:05 03/07/19 16:05 03/07/19 16:05 03/07/19 16:05 03/07/19 16:05 Vital Signs Reviewed: Yes - Mccune Coma Scale Best Eye Response: 4 - Spontaneous Best Motor Response: 6 - Obeys Commands Best Verbal Response: 5 - Oriented Coma Scale Total: 15 Procedures - Sedation Patient Received Moderate/Deep Sedation with Procedure: No Diagnostics - Vital Signs Vital Signs Temp Pulse Resp BP Pulse Ox 03/07/19 18:02 98.8 F 73 18 147/89 100 03/07/19 16:05 97.9 F 77 18 138/98 98 - Laboratory Lab Results: Lab Results 03/07/19 03/07/19 Range/Units 19:15 19:15 WBC 8.9 (3.5-10.8) 10^3/uL RBC 4.62 (3.70-4.87) 10^6 /uL Hgb 13.8 (12.0-16.0) g/dL Hct 40 (35-47) % MCV 86 (80-97) fL MCH 30 (27-31) pg MCHC 35 (31-36) g/dL RDW 13 (10-15) % Plt Count 384 (150-450) 10^3/uL MPV 7.1 L (7.4-10.4) fL Neut % (Auto) 60.1 % Lymph % (Auto) 30.6 % [place] % (Auto) 6.8 % Eos % (Auto) 2.3 % Baso % (Auto) 0.2 % Absolute Neuts (auto) 5.4 (1.5-7.7) 10^3/ul Absolute Lymphs (auto) 2.7 (1.0-4.8) 10^3/ul Absolute Monos (auto) 0.6 (0-0.8) 10^3/ul Absolute Eos (auto) 0.2 (0-0.6) 10^3/ul Absolute Basos (auto) 0.0 (0-0.2) 10^3/ul Absolute Nucleated RBC 0.0 10^3/ul Nucleated RBC % 0.1 Sodium 138 (135-145) mmol/L Potassium 4.1 (3.5-5.0) mmol/L Chloride 105 (101-111) mmol/L Carbon Dioxide 27 (22-32) mmol/L Anion Gap 6 (2-11) mmol/L BUN 14 (6-24) mg/dL Creatinine 0.76 (0.51-0.95) mg/dL Est GFR ( Amer) 110.5 (>60) Est GFR (Non-Af Amer) 91.3 (>60) BUN/Creatinine Ratio 18.4 (8-20) Glucose 83 (70-100) mg/dL Calcium 9.4 (8.6-10.3) mg/dL Total Bilirubin 0.20 (0.2-1.0) mg/dL AST 15 (13-39) U/L ALT 20 (7-52) U/L Alkaline Phosphatase 63 (34-104) U/L Total Protein 6.9 (6.4-8.9) g/dL Albumin 4.3 (3.2-5.2) g/dL Globulin 2.6 (2-4) g/dL Albumin/Globulin Ratio 1.7 (1-3) Beta HCG, Quant < 0.60 mIU/mL Result Diagrams: 03/07/19 19:15 03/07/19 19:15 Lab Statement: Any lab studies that have been ordered have been reviewed, and results considered in the medical decision making process. - CT Brain CT CT Interpretation Completed By: Radiologist Summary of CT Findings: No acute intracranial findings. Normal brain CT. An ED physician has reviewed this report. NIH Scale - NIH Scale Level of Consciousness: Alert/Keenly Responsive Ask Patient the Month and His/Her Age: Both Correct Ask Pt to Open/Close Eyes and End Polisher/Release Non-Paretic Hand: Both Correctly Best Gaze (Only Horizontal Eye Movement): Normal Visual Field Testing: No Visual Loss Facial Paresis-Pt to Smile & Close Eyes or Grimace Symmetry: Normal/Symmetrical Motor Function - Right Arm: No Drift-Holds 10 Seconds Motor Function - Left Arm: No Drift-Holds 10 Seconds Motor Function - Right Leg: No Drift-Holds 10 Seconds Motor Function - Left Leg: No Drift-Holds 10 Seconds Limb Ataxia-Must be out of Proportion to Weakness Present: Absent Sensory (Use Pinprick to Test Arms/Legs/Trunk/Face): Normal Best Language (Describe Picture, Name Items): No Aphasia Dysarthria (Read Several Words): Normal Extinction and Inattention: No Abnormality Total Score: 0 Re-Evaluation - Re-Evaluation First Eval Re-Evaluation Time: 22:34 Change: Unchanged Comment: Headache rated a 4/10, numbness in hands only. High anxiety. Reglan ordered for headache. Course/Dx - Course Course Of Treatment: 28 year old female presents with acute onset visual deficits in her right eye. She also reports numbness of the mouth and tongue, as well as bilateral hand numbness, beginning 1530. Describes hole in vision on right side. Hx of meningitis. Differential includes MS, CVA, meningitis, hemorrhage, and temporal arteritis. Recent history of syncope. Patient with headache of 3/10 initially, currently a 7/10. - Differential Dx Differential Diagnoses Neuro: Positive: Cerebrovascular Accident, Hemorrhage, Meningitis, Temporal Arteritis - Diagnoses Provider Diagnoses: Hemiplegic migraine Discharge ED - Sign-Out/Discharge Documenting (check all that apply): Patient Departure - discharge home - Discharge Plan Condition: Stable Disposition: HOME Patient Education Materials: Migraine Headache (ED) Referrals: Raul Rojo MD [Primary Care Provider] - Additional Instructions: Follow up with your primary care provider in 2-3 days. Return to the Emergency Room if your headache worsens or symptoms change. Feel better! - Attestation Statements Document Initiated by Scribe: Yes Documenting Scribe: Hamilton Silver Provider For Whom Scribe is Documenting (Include Credential): Lillie Pollard MD Scribe Attestation: Hamilton Rodriges , scribed for Lillie Pollard MD on 03/07/19 at [id number]. Status of Scribe Document: Ready
[2019-03-07] MEDS ORDERED: NS 0.9% 1000 ML** 1,000 ML IV ONE (20:42)
[2019-03-07] MEDS ORDERED: Ondansetron INJ* 2 MG/ML VIAL IV ONE (20:42)
[2019-03-07] MEDS ORDERED: Ketorolac INJ* 30 MG/ML 1 ML VIAL IV PUSH ONE (20:42)
[2019-03-07] MEDS ORDERED: diPHENhydraMINE IV* 50 MG/ML 1 ml VIAL (BENADRYL) IV ONE (20:42)
[2019-03-07] MEDS ORDERED: Metoclopramide IV* 5 MG/ML 2 ML VIAL IV ONE (22:38)
[2019-03-07] MEDS ORDERED: Acetaminophen TAB* 325 MG PO PRN (23:34)
[2019-03-07 23:47] VITALS: BP 120/74
== END 2019-03-07 23:46 | disposition home or self-care (01) ==
LOC: ED 16:04
DX: G43.409 Hemiplegic migraine, not intractable, without status migrainosus (principal); Z79.899 Other long term (current) drug therapy; R20.0 Anesthesia of skin; R55 Syncope and collapse; F41.9 Anxiety disorder, unspecified
CPT/HCPCS: 36415; 70450; 80053; 83605; 84702; 85025; 85652; 96361; 96374; 96375; 99283; J1200; J1885; J2405; J2765